=== PATIENT | male | born 1975 | race Caucasian/White ===

== ENCOUNTER → 2018-07-20 07:34 | Emergency (ER) | payer MEDICARE ==
[~2018-07-20 07:34] MED LIST: Diazepam TAB(*) 5 MG PO ONE; Ketorolac INJ* 30 MG/ML 1 ML VIAL IM ONE; Lidocaine PATCH 5%* 1 PATCH TRANSDERM ONE; Lidocaine Patch REMOVE* 1 NOTE MISC SCH; Orphenadrine Citrate IV* 30 MG/ML 2 ML VIAL IM ONE; oxyCODONE/Acetamin 5/325 MG* TAB PO ONE
--- NOTE | 2018-07-20 08:06 | ED ---
Back Pain - HPI Summary HPI Summary: 43-year-old male presents with back pain today. He states he sneezed and developed severe back pain. Has history of previous fractures to his lower back and this is were the pain is. He states the pain clinic give pain injections and that is the only think he needs for pain. He states this has happened before. He states pain goes down his legs and he has numbness tingling. He is not able to move without pain. No saddle anaesthesia. No loss of bladder or bowel. Denies any urinary symptoms. No fevers. No history or IV drug use. Has not taken anything for his pain. Has no other medical conditions. - History of Current Complaint Chief Complaint: EDBackInjuryPain Stated Complaint: LOWER EXTREMITY NUMBNESS PER PT'S AUNT Time Seen by Provider: 07/20/18 07:44 Pain Intensity: 8 - Allergies/Home Medications Allergies/Adverse Reactions: Allergies Allergy/AdvReac Type Severity Reaction Status Date / Time No Known Allergies Allergy Verified 04/19/18 10:02 Home Medications: Home Medications Loratadine [Claritin] 10 mg PO DAILY 07/20/18 [History Confirmed 07/20/18] PMH/Surg Hx/FS Hx/Imm Hx Endocrine/Hematology History: Denies: Hx Diabetes Cardiovascular History: Denies: Hx Hypertension, Hx Pacemaker/ICD GI History: Reports: Hx Gastroesophageal Reflux Disease History: Denies: Hx Renal Disease Musculoskeletal History: Reports: Hx Arthritis, Hx Back Problems, Hx Orthopedic Injury Sensory History: Denies: Hx Hearing Aid Neurological History: Reports: Other Neuro Impairments/Disorders - PAIN CLINIC PT Psychiatric History: Reports: Hx Anxiety, Hx Depression, Hx Community Mental Health Tx, Hx Bipolar Disorder Denies: Hx Panic Disorder - Surgical History Surgery Procedure, Year, and Place: HERNIA AGE 12 Infectious Disease History: No Infectious Disease History: Denies: Traveled Outside the [place] in Last 30 Days - Family History Known Family History: Positive: Non-Contributory - Social History Alcohol Use: None Substance Use Type: Reports: Marijuana Substance Use Comment - Amount & Last Used: medical Smoking Status (MU): Former Smoker Type: Smokeless Tobacco Amount Used/How Often: chews daily - 1 can per week Length of Time of Smoking/Using Tobacco: 20+ yrs Have You Smoked in the Last Year: Yes Review of Systems Negative: Fever Negative: Chest Pain Negative: Shortness Of Breath Positive: Myalgia - back pain All Other Systems Reviewed And Are Negative: Yes Physical Exam Triage Information Reviewed: Yes Vital Signs On Initial Exam: Initial Vitals Temp Pulse Resp BP Pulse Ox 97.9 F 74 16 148/82 96 07/20/18 07:48 07/20/18 07:48 07/20/18 07:48 07/20/18 07:48 07/20/18 07:48 Vital Signs Reviewed: Yes Appearance: Positive: Well-Appearing Skin: Positive: Warm, Dry Head/Face: Positive: Normal Head/Face Inspection Eyes: Positive: Normal, Conjunctiva Clear ENT: Positive: Pharynx normal Respiratory/Lung Sounds: Positive: Clear to Auscultation, Breath Sounds Present Cardiovascular: Positive: Normal, RRR Abdomen Description: Positive: Nontender, Soft Bowel Sounds: Positive: Present Musculoskeletal: Positive: Limited @ - back, Other - tenderness lower back, pos SLR Neurological: Positive: Normal, Babinski Bilateral - normal Psychiatric: Positive: Normal Diagnostics - Vital Signs Vital Signs Temp Pulse Resp BP Pulse Ox 07/20/18 07:50 75 95 07/20/18 07:48 97.9 F 73 16 148/82 96 - Laboratory Lab Statement: Any lab studies that have been ordered have been reviewed, and results considered in the medical decision making process. - CT back CT Interpretation Completed By: Radiologist Re-Evaluation - Re-Evaluation First Eval Re-Evaluation Time: 09:35 Change: Improved Comment: back improved Second Eval Re-Evaluation Time: 10:39 Change: Improved Comment: pain better Back Pain Course/Dx - Course Course Of Treatment: 43-year-old male presents with back pain today. He states he sneezed and developed severe back pain. Has history of previous fractures to his lower back and this is were the pain is. He states the pain clinic give pain injections and that is the only think he needs for pain. He states this has happened before. He states pain goes down his legs and he has numbness tingling. He is not able to move without pain. No saddle anaesthesia. No loss of bladder or bowel. Denies any urinary symptoms. No fevers. No history or IV drug use. Has not taken anything for his pain. Has no other medical conditions. on exam tenderness lower back. Neurovascular intact. CT shows no acute findings. gave pain medication and feeling better. will discharge with pain medication. patient understand and agrees with plan. - Diagnoses Differential Diagnosis/HQI/PQRI: Positive: Fracture, Herniated Disc, Sprain Provider Diagnoses: Back pain Discharge - Sign-Out/Discharge Documenting (check all that apply): Patient Departure Patient Received Moderate/Deep Sedation with Procedure: No - Discharge Plan Condition: Good Disposition: HOME Prescriptions: Cyclobenzaprine TAB* [Flexeril 10 MG TAB*] 10 mg PO TID PRN #21 tab PRN Reason: Pain HYDROcodone/ACETAMIN 5-325 MG* [[place] 5-325 TAB*] 1 tab PO Q6H PRN #4 tab MDD 4 PRN Reason: Pain methylPREDNISolone [Medrol Dosepak 4 MG*] 4 mg PO .SEE YISSEL INSTRUCTION #1 packet Patient Education Materials: Back Pain (ED) Referrals: Gray Price CATERING COORDINATOR [Primary Care Provider] - Additional Instructions: Follow directions on package for Medrol pack Take muscle relaxers three times a day Use ibuprofen or Tylenol for pain every 6 hours, use percocet every 6 hours as needed for pain ice/heat area, move as much as possible Follow up with primary within 5 days Return to ED if develop any new or worsening symptoms - Billing Disposition and Condition Condition: GOOD Disposition: Home
[2018-07-20 11:23] VITALS: BP 108/71
== END | disposition home or self-care (01) ==
LOC: ED 07:34
DX: M54.9 Dorsalgia, unspecified (principal); K21.9 Gastro-esophageal reflux disease without esophagitis; M19.90 Unspecified osteoarthritis, unspecified site; F41.9 Anxiety disorder, unspecified; F32.9 Major depressive disorder, single episode, unspecified; F17.290 Nicotine dependence, other tobacco product, uncomplicated; M41.86 Other forms of scoliosis, lumbar region
CPT/HCPCS: 72131; 96372; 99282; A9270-GY; J1885; J2360

== ENCOUNTER 2018-10-31 11:05 | Emergency (ER) | payer MEDICARE ==
[2018-10-31 11:30] VITALS: BP 113/66
--- NOTE | 2018-10-31 12:07 | UC ---
Hand/Wrist HPI - HPI Summary HPI Summary: right hand pain x 1 day FOOSH injury to right hand / right wist pain and swelling right hand / wrist pain is moderated 6 out of 10 , worse with movement , better with rest - History Of Current Complaint Chief Complaint: UCUpperExtremity Stated Complaint: RIGHT HAND INJURY (FALL) Time Seen by Provider: 10/31/18 11:20 Hx Obtained From: Patient Onset/Duration: Sudden Onset, Lasting Days - 1, Still Present Severity Initially: Moderate Severity Currently: Moderate Pain Intensity: 7 Character Of Pain: Dull, Aching Aggravating Factor(s): Movement, Lifting, Flexion, Extension Alleviating Factor(s): Rest, Ice Associated Signs And Symptoms: Positive: Swelling, Weakness - Allergies/Home Medications Allergies/Adverse Reactions: Allergies Allergy/AdvReac Type Severity Reaction Status Date / Time No Known Allergies Allergy Verified 10/31/18 11:31 Home Medications: Home Medications NK [No Home Medications Reported] 10/31/18 [History Confirmed 10/31/18] PMH/Surg Hx/FS Hx/Imm Hx Previously Healthy: Yes - Surgical History Surgical History: Yes Surgery Procedure, Year, and Place: HERNIA AGE 12 - Family History Known Family History: Positive: Non-Contributory - Social History Alcohol Use: None Substance Use Type: Marijuana Substance Use Comment - Amount & Last Used: daily Smoking Status (MU): Former Smoker Type: Smokeless Tobacco Amount Used/How Often: chews daily - 1 can per week Length of Time of Smoking/Using Tobacco: 20+ yrs Have You Smoked in the Last Year: Yes When Did the Patient Quit Smoking/Using Tobacco: 2011 Review of Systems All Other Systems Reviewed And Are Negative: Yes Constitutional: Positive: Negative Skin: Positive: Negative Eyes: Positive: Negative ENT: Positive: Negative Respiratory: Positive: Negative Is Patient Immunocompromised?: No Physical Exam Vital Signs: Initial Vital Signs Temp 97.9 F 10/31/18 11:25 Pulse 62 10/31/18 11:25 Resp 16 10/31/18 11:25 BP 113/66 10/31/18 11:25 Pulse Ox 99 10/31/18 11:25 Diagnostics - Radiology No standard instances Radiology Interpretation Completed By: Radiologist Summary of Radiographic Findings: right hand / right wirst xray report: REPORT AND IMPRESSION: #. Negative for fracture or articular malalignment at the wrist or hand. #. Preserved joint spaces. #. Mild nonfocal soft tissue swelling. Hand/Wrist Course/Dx - Differential Dx/Diagnosis Provider Diagnosis: Sprain of right wrist Discharge ED - Sign-Out/Discharge Documenting (check all that apply): Patient Departure All imaging exams completed and their final reports reviewed: Yes - Discharge Plan Condition: Stable Disposition: HOME Patient Education Materials: Wrist Sprain (ED) Referrals: Gray Price NP [Primary Care Provider] - 7 Days - Billing Disposition and Condition Condition: STABLE Disposition: Home
== END 2018-10-31 12:15 | disposition home or self-care (01) ==
LOC: UCCORT 11:05
DX: S63.501A Unspecified sprain of right wrist, initial encounter (principal); W19.XXXA Unspecified fall, initial encounter; Y92.9 Unspecified place or not applicable; Z87.891 Personal history of nicotine dependence
CPT/HCPCS: 99212; G0463